=== PATIENT | female | born 1955 | race African-American/Black ===

== ENCOUNTER 2021-04-02 10:28 | Emergency (ER) | payer OTHER ==
[2021-04-02 11:21] VITALS: TEMP 98.3; BMI 29.2
[2021-04-02] MEDS ORDERED: amLODIPine BESYLATE 10 MG TABLET (FP) PO ONE (11:41)
[2021-04-02] MEDS ORDERED: amLODIPine BESYLATE 5 MG TABLET (FP) ONE (11:49)
[2021-04-02 12:43] VITALS: BP 150/88; PULSE 71
== END 2021-04-02 13:00 | disposition home or self-care (01) ==
LOC: JER 10:28
DX: R03.0 Elevated blood-pressure reading, without diagnosis of hypertension (principal)
CPT/HCPCS: 99283-25